=== PATIENT | female | born 2000 | race Caucasian/White ===

== ENCOUNTER 2024-07-10 10:21 | Emergency (ER) | payer BC ==
[~2024-07-10] VITALS: Ht 162.6 cm; Wt 71.7 kg
[2024-07-10 10:25] VITALS: TEMP 97.9
[2024-07-10] MEDS: SODIUM CHLORIDE 0.9% 1000ML 1,000 ML IV STA (11:06)
[2024-07-10] MEDS: ONDANSETRON HCL INJ 2MG/ML 2ML 2 MG/ML VIAL IV STA (11:07)
[2024-07-10 12:15] LABS: INFLUENZAE A&B ANTIGEN (RAPID) NEGATIVE (NEGATIVE); RESPIRATORY SYNC. VIRUS NEGATIVE (NEGATIVE)
[2024-07-10 12:30] VITALS: PULSE 83; RESP 16
[2024-07-10] MEDS ORDERED: DICLEGIS DR 101 EACH PO (12:55)
[2024-07-10 13:11] VITALS: BP 111/64; PULSE 90; RESP 16; O2SAT 100
== END 2024-07-10 13:11 | disposition home or self-care (01) ==
LOC: ER 10:28
DX: O21.0 Mild hyperemesis gravidarum (principal); B34.9 Viral infection, unspecified; R10.13 Epigastric pain; D64.9 Anemia, unspecified; K21.9 Gastro-esophageal reflux disease without esophagitis; F32.A Depression, unspecified; Z11.52 Encounter for screening for COVID-19
CPT/HCPCS: 87400; 87420; 99283; J2405; J7030; U0002